=== PATIENT | male | born 1945 | race Caucasian/White ===

== ENCOUNTER → 2017-09-28 07:55 | Outpatient (CLI) | payer OTHER, SELFPAY ==
[2017-09-28 09:41] LABS: Cholesterol 185 mg/dL (50-200); HDL Cholesterol 76 mg/dL (40-60); LDL CHOLESTEROL 101 mg/dL (<100); Triglyceride 56 mg/dL (30-150)
== END ==
PROVIDERS: PCP Family Medicine; Visit Provider Family Medicine
DX: E87.4 Mixed disorder of acid-base balance (principal)
CPT/HCPCS: 36415; 80061; 83721

== ENCOUNTER 2018-04-01 14:16 | Outpatient (CLI) | payer OTHER, SELFPAY ==
--- NOTE | 2018-04-01 13:38 | DI.RAD_ITS ---
SYMPTOMS/DIAGNOSIS: PAIN IN RIGHT FINGER, M79.644, S/P JAMMING 5 WEEKS AGO, PERSISTING PAIN, SUBTLE MEDIAL SUBLUXATION, ? FRACTURE RIGHT MIDDLE FINGER: Three views. No acute fracture or dislocation is seen. The proximal interphalangeal joint shows joint space narrowing and periarticular spurring. The distal interphalangeal joint shows joint space narrowing, subchondral sclerosis and spurring. Subchondral cysts are seen in the joint space. There is no radiopaque foreign body seen in the soft tissues. IMPRESSION: 1. No acute fracture or dislocation. 2. Degenerative changes of the middle finger.
== END 2018-04-01 14:36 ==
PROVIDERS: PCP Family Medicine; Visit Provider Family Medicine
DX: M79.644 Pain in right finger(s) (principal); M19.041 Primary osteoarthritis, right hand; M85.441 Solitary bone cyst, right hand
CPT/HCPCS: 73140

== ENCOUNTER → 2018-06-01 11:08 | Outpatient (BNVA) | payer OTHER, SELFPAY | PROVIDERS: PCP Family Medicine; Referring Provider Family Medicine; Visit Provider Orthopaedic Surgery | DX: M17.11 Unilateral primary osteoarthritis, right knee (principal) | CPT/HCPCS: 99211; 99212 ==

== ENCOUNTER 2018-06-13 17:17 | Emergency (ER) | payer OTHER, SELFPAY ==
[2018-06-13 17:33] VITALS: BP 143/88; PULSE 86; RESP 18; TEMP 37; O2SAT 100
--- NOTE | 2018-06-13 17:37 | W.ED.GENAD ---
Discharge Plan Disposition Patient Disposition: HOME Condition: Good Discharge Details Chief Complaint: AnimalBite Clinical Impression: Cat bite Primary Care Provider: Wolf Keller ED Provider: Geo Victoria Home Meds and New Rx's Prescriptions: New amoxicillin-pot clavulanate [Augmentin] 875-125 mg tablet 1 tab PO BID Qty: 20 RF: 0 No Action atorvastatin 10 MG tablet 0.5 tab PO DAILY RF: 0 flaxseed oil 1,000 MG capsule 1,000 mg PO DAILY RF: 0 aspirin [Aspirin Low-Strength] 81 MG tablet,chewable 81 mg PO DAILY RF: 0 ketoconazole 15 GM cream 1 ea Topical PRN PRNRF: 0 multivitamin 1 EACH capsule 1 ea PO DAILY RF: 0 cholecalciferol (vitamin D3) [Vitamin D3] 1,000 UNIT capsule 1,000 unit PO .3X WEEKLY RF: 0 Glucos Chond Cplx Advanced 1 EACH tablet 1 ea PO DAILY RF: 0 Discharge Instructions Instructions: Animal Bite (ED) Additional Instructions: Please take the antibiotic as directed. If you notice any worsening of your symptoms, or any new symptoms such as v spreading of the redness, worsening pain with movement of your fingers, omiting, diarrhea, fever, chills, shortness of breath, chest pain, numbness, weakness, or fainting , please return immediately to the emergency department for reevaluation. Please follow up with your primary care provider as soon as possible for reassessment and reevaluation. As always, it was a pleasure participating in your medical care today. Referrals: Wolf Keller [Primary Care Provider] - Medical Decision Making This is a 73-year-old male with no significant past medical history who presents for evaluation after a cat bite. He was bitten on his right hand over 8 hours ago, he scrubbed and cleaned the area vigorously after the initial event. Since then he has noted a small amount of swelling. Clinically he shows minimal swelling around the bite area, but no evidence of clinical flexor or extensor tenosynovitis. With no history of diabetes, we will start the patient on Augmentin, give him his first dose here, recommend close follow-up. Tetanus is up-to-date, and the cat's vaccines are up-to-date. I have extensively reviewed the treatment plan and discharge instructions with the patient. I have addressed all patient concerns at this time. The patient was made aware of what symptoms to monitor for that would warrant a return to the emergency department. Discussed the plan with the patient, they demonstrate verbal understanding and agreement with our assessment and plan at this time. HPI General Date/Time Provider Initiated Documentation: 06/13/18 17:26. HPI Narrative: This is a 73-year-old male with a past medical history of high cholesterol, who presents today for evaluation of cat bite to his right hand. He is right-hand dominant. Patient states that 8 hours ago he was bit on his right dominant hand by his cat. A single bite was made on the lateral aspect just proximal to his fourth and fifth finger. He scrubbed the area with significant amount of peroxide and soap and water. Apply triple antibiotic ointment, and then went for bike ride. Roughly an hour ago after the bike ride he noticed a small amount of swelling in the area and came in for further evaluation. He denies any fever, chills, redness, discharge or other complaints. He has no antibiotic allergies. The cat was his, it was an indoor cat, his tetanus was updated with the last 5 years, and the cat has its rabies vaccines patient has no other complaints at this time. Related Data Home Medications Medication Instructions Recorded Confirmed aspirin [Aspirin Low-Strength] 81 mg PO DAILY 09/24/16 06/13/18 atorvastatin 0.5 tab PO DAILY 09/24/16 06/13/18 cholecalciferol (vitamin D3) 1,000 unit PO .3X WEEKLY 09/24/16 06/13/18 [Vitamin D] flaxseed oil 1,000 mg PO DAILY 09/24/16 06/13/18 [id number] 149-hyal ac 1 ea PO DAILY 09/24/16 06/13/18 [Glucosamine-Chondr Complex Tab] ketoconazole 1 ea TOPICAL PRN PRN 09/24/16 06/13/18 multivitamin 1 ea PO DAILY 09/24/16 06/13/18 amoxicillin-pot clavulanate 1 tab PO BID #20 tab 06/13/18 [Augmentin] Previous Rx's Medication Instructions Recorded amoxicillin-pot clavulanate 1 tab PO BID #20 tab 06/13/18 [Augmentin] Allergies Allergy/AdvReac Type Severity Reaction Status Date / Time environmental Allergy Mild Uncoded 06/13/18 17:37 General Stated Complaint: AnimalBite MANUEL: 4 Review of Systems Review of Systems All systems reviewed & are unremarkable except as noted in HPI and below PFSH Social History Smoking/Tobacco Use Status: Never Alcohol Intake: never Drug use: Never Do you feel safe at home: Yes Do you feel safe in your relationship?: Yes Exam Narrative Exam Narrative: 1.Const: Well-nourished, Well-developed, appearing stated age 2.Eyes: PERRL, no conjunctival injection, and symmetrical lids. 3.ENT: Atraumatic external nose and ears. Moist MM. Neck: Symmetric, trachea midline, No thyromegaly. 4.CVS: +S1/S2, No murmurs or gallops. Peripheral pulses 2+ and equal in all extremities. Brisk capillary refill in all extremities. 5.RESP: Unlabored respiratory effort. Clear to auscultation bilaterally. No wheezes rales or rhonchi 6.GI: Soft, Nontender/Nondistended, No hepatosplenomegaly. No guarding or rebound. 7.MSK: Normocephalic/Atraumatic, Extremities w/o deformity or ttp No cyanosis or clubbing, Normal movement of all extremities. Symmetrically palpable radial and ulnar pulses. Right hand: capillary refill less than 2 seconds to all digits. Intact sensation to light touch of the radial, median and ulnar nerves demonstrated by testing in the dorsal web space of the thumb, the distal palmar aspect of the index finger, and the lateral surface of the fifth finger. 2 point discrimination intact to 5mm (up to 6mm can be normal in digits 3-5) of discrimination in the affected digit. Intact motor function of the radial, median and ulnar nerves demonstrated by strength of extension of the isolated distal joint of the index finger, hand transplanter, and spreading of the 2nd through 5th digits. Intact recurrent median nerve as demonstrated by ability to move thumb fully through opposition, abduction and flexion. No snuffbox tenderness. Patient has no pain on passive or active flexion or extension of the second third fourth or fifth digits. No evidence of flexor tenosynovitis or extensor tenosynovitis 8.Skin: Warm, Dry. 2 small puncture lesions on the dorsum of the right hand proximal to the fourth and fifth fingers. Minimal swelling, minimal erythema, no drainage or discharge. No significant pain or tenderness. No other significant abnormalities. 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 Sensation grossly intact, no focal neurologic deficits. 10.Psych: (AAO) x3. Appropriate mood and affect Course Vital Signs Temperature 37 C 06/13/18 17:33 Pulse 86 06/13/18 17:33 Respiratory Rate 18 06/13/18 17:33 Blood Pressure 143/88 H 06/13/18 17:33 Pulse Oximetry 100 06/13/18 17:33 Temperature 37 C 06/13/18 17:33 Temperature Source Temporal Artery Scan 06/13/18 17:33 Pulse 86 06/13/18 17:33 Respiratory Rate 18 06/13/18 17:33 Blood Pressure 143/88 H 06/13/18 17:33 Pulse Oximetry 100 06/13/18 17:33 Oxygen Delivery Method Room Air 06/13/18 17:33 Oxygen Flow Rate 0 06/13/18 17:33 Pain Level 1 06/13/18 17:33
[2018-06-13] MEDS: Amoxicillin 875/Clav. 125 TAB PO (17:43)
--- NOTE | 2018-06-13 17:50 | NUR.NOTE ---
Addendum entered by Jennifer Tay 06/14/18 15:48: 06/14/18 [employer] clerk called stating that the patient property was actually in [place] and to report it to that Health Officer. Raleigh Thomas is the [place] Health officer so will give him a copy of the report tonight when he report for work. Jennifer Tay Original Note: Nursing Note: Animal bite will be reported tomorrow due to the State website is not working at this time. Jennifer Tay.
== END 2018-06-13 17:50 | disposition home or self-care (01) ==
PROVIDERS: Emergency Provider Student in an Organized Health Care Education/Training Program; PCP Family Medicine
DX: S61.451A Open bite of right hand, initial encounter (principal); W55.01XA Bitten by cat, initial encounter
CPT/HCPCS: 99283

== ENCOUNTER 2018-09-20 01:24 | Outpatient (CLI) | payer OTHER, SELFPAY ==
[2018-09-20 09:05] LABS: Hemoglobin A1C 5.6 % (4.5-6.2)
[2018-09-20 09:06] LABS: Calculated LDL 109 mg/dL; Cholesterol 189 mg/dL (50-200); HDL Cholesterol 68 mg/dL (40-60); Triglyceride 63 mg/dL (30-150)
== END 2018-09-20 01:44 ==
PROVIDERS: PCP Family Medicine; Visit Provider Family Medicine
DX: Z00.00 Encounter for general adult medical examination without abnormal findings (principal); Z13.6 Encounter for screening for cardiovascular disorders
CPT/HCPCS: 36415; 80061; 83721; 83036

== ENCOUNTER 2019-09-29 10:47 | Outpatient (CLI) | payer OTHER, SELFPAY ==
--- NOTE | 2019-09-29 10:30 | DI.RAD_ITS ---
EXAM: XR FOOT RT COMPLETE CLINICAL HISTORY: eval R foot pain, forefoot (2nd mostly). TECHNIQUE: 2D digital imaging was performed. COMPARISON: No exams were available for comparison FINDINGS: There are degenerative changes of the 1st MTP joint. There is moderate to severe joint space narrowi ng and mild periarticular spurring. There are no bony erosions or evidence of hallux valgus. Remain ing MTP joints are unremarkable. There are mild degenerative changes at the tarsal metatarsal joints . There is no evidence of stress fracture.. IMPRESSION: Degenerative changes of the 1st MTP joint. DATA REPOSITORY: RADIATION DOSE DELIVERED:
== END 2019-09-29 11:07 ==
PROVIDERS: PCP Family Medicine; Referring Provider Family Medicine; Visit Provider Student in an Organized Health Care Education/Training Program
DX: M19.071 Primary osteoarthritis, right ankle and foot (principal); M79.671 Pain in right foot
CPT/HCPCS: 99203; 99214; 73630

== ENCOUNTER 2020-07-23 06:54 | Day surgery (SDC) | payer OTHER, SELFPAY ==
[2020-07-23 07:06] VITALS: BP 142/84; PULSE 60; RESP 16; TEMP 36.2; O2SAT 97
--- NOTE | 2020-07-23 07:10 | ANES.PREOP_ITS ---
General Info Date of Service Date Performed: 07/23/20 Height: 5 ft 10 in Weight: 73.028 kg Body Mass Index (BMI): 23.1 Surgical Procedure: Operation Date: 07/23/20 08:25 Proposed Procedures Side Surgeon p Cataract Extraction with IOL Implant Matias Prakash MD Meds Allergies and Home Medications Allergies Allergy/AdvReac Type Severity Reaction Status Date / Time environmental Allergy Mild Uncoded 07/23/20 07:05 Home Medication Medication Instructions Recorded aspirin [Aspirin Low-Strength] 81 mg PO DAILY 09/24/16 atorvastatin 0.5 tab PO DAILY 09/24/16 flaxseed oil 1,000 mg PO DAILY 09/24/16 [id number] 149-hyal ac 1 ea PO DAILY 09/24/16 [Glucosamine-Chondr Complex Tab] multivitamin 1 ea PO DAILY 09/24/16 biotin 1,000 mcg chewable tablet 1,000 mcg PO DAILY 09/29/19 omega-3 fatty acids [Fish Oil] 1 cap PO DAILY 07/19/20 Current Visit Medications: Current Medications Generic Name Dose Route Start Last Admin Trade Name Freq PRN Reason Stop Dose Admin Acetaminophen 1,000 mg 07/23/20 06:00 Acetaminophen 500 Mg Tab PO Q4H PRN PRN Miscellaneous Medication 0 ml 07/23/20 06:00 Prednisolone 1%, Moxifloxacin 0.5%, Nepafenac 0.1% 5ml Btl OS DIRECTED [facility] Miscellaneous Medication 0 ml 07/23/20 06:00 Tropicam./Phenyleph. 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 denies Iritis, recurrent Mixed hyperlipidemia Osteoarthritis of carpometacarpal (CMC) joint of right thumb Seborrheic dermatitis Trigger finger, right ring finger Surgical History Surgical History (Updated 07/23/20 @ 07:19 by Yoselin Hernandez) Hx of arthroscopic knee surgery bilateral Hx of cataract surgery Hx of tonsillectomy Tobacco Smoking/Tobacco Use Status: Never Alcohol Alcohol Intake: current Alcohol intake frequency: 0-2 drinks per day Substance Use Substance use: Never Substance use type: does not use Vital Signs and Lab Results Lab Results Blood Type / Crossmatch: No Data to Display Complete Blood Count: No Data to Display Complete Metabolic Panel: No Data to Display Liver Function Panel: No Data to Display Coagulation Panel: No Data to Display Cardiac Panel: No Data to Display Arterial Blood Gas: No Data to Display Venous Blood Gas: No Data to Display Pancreas Panel: No Data to Display Thyroid Panel: No Data to Display Infectious Disease: No Data to Display Blood Cultures: No Data to Display Toxicology Panel: No Data to Display Anesthesia Assessment and Plan Anesthesia History Personal History: No History of Anesthesia Complications Family History: No Family History of Anesthesia Complications Exercise Tolerance Exercise Tolerance: Metabolic Equivalents>4 Pertinent Negatives Pertinent Negatives: No Symptoms of GERD, No Major Cardiovascular Symptoms or Complaints, No Major Pulmonary Symptoms or Complaints and No History of CVA/TIA Cardiac & Pulmonary Exam Cardiac Exam: Normal S1/S2 Heart Sounds Pulmonary Exam: Clear Bilateral Breath Sounds Airway Exam Known Difficult Airway: No Mallampati Class: 2 Mouth Opening: Normal (> 3cm) Thyromental Distance: Greater than 3 cm Neck Range of Motion: Full ROM Neck Circumference: Normal Teeth Condition: Normal Dentition ASA Classification ASA Score: ASA 2 Emergency Case?: No NPO Status NPO Status: NPO Clears >2 hours, Solids >8 hours Anesthesia Plan Resuscitation Status: Full Code Anesthesia Technique: MAC Anesthesia Airway Planned: Natural Airway Monitors Used: Standard Monitors
[2020-07-23] MEDS: Tropicam./Phenyleph. (1/2.5%) 5 ML BTL OS ×3 (07:15→07:30)
[2020-07-23 07:22] VITALS: BMI 23.1
[2020-07-23] MEDS: Tetracaine 0.5% 4 ML BTL OS (08:23)
[2020-07-23] MEDS: Balanced Salt Soln.-PLUS 500 ML BAG (08:24)
[2020-07-23] MEDS: Duovisc Viscoelastic System EACH 1 EACH (08:25)
[2020-07-23] MEDS: Lidocaine 1% Pres-Free 5 ML VIAL ×2 (08:25→08:26)
[2020-07-23] MEDS: Lidocaine 2% Jelly 6 ML SYR (08:28)
[2020-07-23] MEDS: Povidone-Iodine Ophth 30 ML BTL (08:31)
--- NOTE | 2020-07-23 08:44 | W.ANESPOSTOP ---
Postoperative Evaluation Date, Time and Location Date Performed: 07/23/20 Time Performed: 08:45 Patient Location: Day Surgery Unit Vital Signs Most Recent Imported Vital Signs: Most Recent Vital Signs Temp Pulse Resp BP Pulse Ox 36.2 C L 60 16 142/84 H 97 07/23/20 07:06 07/23/20 07:06 07/23/20 07:06 07/23/20 07:06 07/23/20 07:06 Most Recent Manually Entered Vital Signs: Adult Blood Pressure: 139/79 Heart Rate: 61 Respirations: 16 Oxygen Saturation (%): 98 Temperature (C): 36.7 C Pain Score (0-10 Scale): 0 Pain Score Most Recent Pain Score: Most Recent Pain Score Pain Level 0 07/23/20 07:06 Assessment Mental Status: Awake (Alert & Oriented to Patient Baseline) Airway and Respiratory Function: Patent airway with normal (patient baseline) respiratory exam Cardiovascular Function: Hemodynamically Stable Hydration Status: Adequately Hydrated Nausea & Vomiting: No Nausea or Vomiting Pain: Pt. Denies Any Pain Peripheral Nerve Block: Other (Local by Dr. Prakash)
--- NOTE | 2020-07-23 08:44 | W.PM.DSUDISC ---
Discharge Plan Disposition Patient Disposition: HOME Condition: Good Discharge Details Reason For Visit: CATARACT Attending Provider: Matias Prakash Primary Care Provider: Wolf Keller Home Meds and New Rx's Prescriptions: No Action biotin 1,000 mcg tablet,chewable 1,000 mcg PO DAILY RF: 0 atorvastatin 10 MG tablet 0.5 tab PO DAILY RF: 0 flaxseed oil 1,000 MG capsule 1,000 mg PO DAILY RF: 0 aspirin [Aspirin Low-Strength] 81 MG tablet,chewable 81 mg PO DAILY RF: 0 multivitamin 1 EACH capsule 1 ea PO DAILY RF: 0 Glucos Chond Cplx Advanced 1 EACH tablet 1 ea PO DAILY RF: 0 Fish Oil Capsule 1 cap PO DAILY RF: 0 Discharge Instructions Stand Alone Forms: Post-op Topical Cataract, Miladis Lopez (DSU) Discharge Orders Discharge Orders: Discharge Order (Routine); Ordered 07/23/20 Ordered By: Matias Prakash DS: Diagnosis Discharge Diagnosis (1) Nuclear sclerotic cataract of left eye: Status: Resolved (2) Cortical cataract of left eye: Status: Resolved (3) Posterior subcapsular age-related cataract of left eye: Status: Resolved
[2020-07-23 08:45] VITALS: BP 139/79; PULSE 61; RESP 16; TEMPC 36.7; O2SAT 98
--- NOTE | 2020-07-23 08:45 | ROE_ITS ---
Date of service: 07/23/20 Time of Service: 08:45 Operative Note Operative Note DATE OF PROCEDURE: 07/23/20 PRE-OP DIAGNOSIS: Nuclear/cortical/posterior subcapsular cataract, left eye POST-OP DIAGNOSIS: same PROCEDURE: Cataract extraction using phacoemulsification with intraocular lens implant, left eye SURGEON: Matias Prakash ANESTHESIA TYPE: Local By Surgeon and MAC Refer to Anesthesia Record PATHOLOGY: none sent COMPLICATIONS: None Patient was transported to: same day Patient's condition: stable Implants: [employer] / [employer] Tecnis [id number] Indications: Progressive decreased vision due to cataract, left eye Procedure Description: CATARACT SURGERY OPERATIVE REPORT PREOPERATIVE DIAGNOSIS: Nuclear/cortical/posterior subcapsular cataract, left eye Myopia, with desire for postoperative myopic refractive target POSTOPERATIVE DIAGNOSIS: Same OPERATION: Cataract extraction using phacoemulsification with posterior chamber intraocular lens implant, left eye. IOL: IOL Brickmason Supervisor/Model: [employer] / RUMA Tecnis [id number] IOL Power: + 23.0 diopters IOL Serial Number: [id number] Optic Diameter: 6.0mm Haptic/Overall Diameter: 13.0mm PHACO INFO: Pancho Solariaurion Vision System with OZil and Active Fluidics Cumulative Dispersed Energy (CDE): 10.51 seconds SURGEON: Matias Prakash MD, FRED ANESTHESIA: Monitored Anesthesia Care (MAC), with local sub-tenon's anesthetic infiltration COMPLICATIONS: None SPECIMENS: None INDICATIONS FOR PROCEDURE: Patient is a 75-year-old gentleman with history of diminished visual acuity in his left eye secondary to the development of nuclear/cortical/posterior sub capsular cataract. He has previously undergone cataract surgery in the right eye in 2012. He now presents for cataract surgery in the left eye. He has moderate myopia in the left eye and desires to remain myopic, with postop refractive target of -2.0 diopters. PROCEDURE: The correct surgical eye was identified and marked as the left eye and the pupil was dilated in the preoperative area using mydriatics and cycloplegics. The dilated pupil size was 7.0 mm. He elected to proceed without oral sedation. The patient was brought to the operating room where cardiopulmonary monitoring was instituted and surgical time-out was performed, confirming the correct operative eye and IOL power. Topical anesthesia was administered and ophthalmic povidone-iodine 5% was instilled into the conjunctival fornices. Lidocaine gel was applied to the cornea and the french-ocular area was prepped with Betadine 10% solution and draped in the usual sterile fashion for intraocular surgery, including an aperture drape. A Tegaderm transparent film dressing was cut in half and used to cover the lashes and lid margins. Care was taken to sequester the lashes and lid margins under the Tegaderm dressing. A lid speculum was placed between the lids of the operative eye and the [employer] operating microscope was maneuvered into position. Tomás scissors were then used to make a conjunctival buttonhole approximately 6mm posterior to the limbus in the inferonasal quadrant. Blunt dissection was carried out to expose bare sclera, and a blunt-tipped sub-tenon?s anesthesia cannula was introduced and passed posteriorly along the globe where non- preserved plain lidocaine was injected into posterior sub-Tenon?s space. A sideport knife was used to make a paracentesis port superior/superiortemporally. Intraocular phenylephrine/lidocaine was injected into the anterior chamber. The anterior chamber was then filled with viscoelastic. A 2.4mm keratome knife was used to create a half-thickness groove at the limbus and then to construct a three-plane near-clear corneal tunnel extending 2.0mm into clear cornea in the temporal position. . A flap was raised on the anterior capsule and capsulorhexis forceps were used to complete a continuous curvilinear capsulorhexis of 5.5 mm. Balanced salt solution was then used to perform cortical cleaving hydrodissection and nuclear hydrodelineation until the lens could be freely rotated within the capsular bag. The lens nucleus was then disassembled and removed within the capsular bag and iris plane using phacoemulsification. Residual cortical material was removed using the 45-degree angled silicone I/A tip with 0.3mm port. The posterior capsule was carefully polished to remove as much residual lens epithelial cells as safely possible. The capsular bag was then inflated and the anterior chamber deepened with viscoelastic. The lens implant described above was inserted into the capsular bag using the RUMA [place] Injector. A Kuglen hook was used to dial the IOL into position. Residual viscoelastic was then removed first from posterior to the IOL, then from the anterior chamber using the I/A handpiece. The lens implant was noted to center nicely within the capsular bag. The incisions were stromally hydrated, and the anterior chamber was reformed using BSS. Then 0.5cc of moxifloxacin 1.0mg/ml were injected into the capsular bag and anterior chamber. The incisions were checked with a Weck spear and found to be secure. Several drops of ophthalmic povidone-iodine 5% were then applied to the eye followed by two dr ops of Imprimis combination prednisolone/moxifloxacin/nepafenac solution. The drapes were removed and a clear plastic protective eye shield was placed over the eye. The patient was then returned to Same Day Surgery in stable condition.
[2020-07-23 08:48] VITALS: BP 139/79; PULSE 61; RESP 16; TEMP 36.7; O2SAT 98
== END 2020-07-23 09:04 | disposition home or self-care (01) ==
PROVIDERS: PCP Family Medicine; Visit Provider Ophthalmology
PROC: (CPT 66984; principal; 2020-07-23 08:15)
DX: H25.042 Posterior subcapsular polar age-related cataract, left eye (principal); E78.2 Mixed hyperlipidemia
CPT/HCPCS: 66984; V2632

== ENCOUNTER 2020-09-19 02:02 | Outpatient (CLI) | payer OTHER, SELFPAY ==
--- NOTE | 2020-09-19 | DI.NM_ITS ---
Exam(s) NM BONE SCAN WHOLE BODY GRP EXAM: NM BONE SCAN WHOLE BODY GRP CLINICAL HISTORY: PROSTATE CA, C61, ? METS. TECHNIQUE: Injected Dose: 25.2 mCi Tc-99m MDP Delayed Images: 3.5 hours. COMPARISON: CR XR finger LT middle from 04/01/2018 CR XR finger LT middle from 04/01/2018 CR XR FOOT RT COMPLETE from 09/29/2019 CR XR FOOT RT COMPLETE from 09/29/2019 FINDINGS: Whole body images and spot views of the spine, chest and pelvis were performed. There are innumerable abnormal foci of increased labeling seen throughout the bilateral ribs, thoraci c spine, pelvis and both proximal femurs. Several foci are seen in the right proximal humerus. Ther e is a focus abnormal labeling in the posterior neck. There is increased activity in the right kidne y which could indicate an element of obstruction versus a prominent renal pelvis. IMPRESSION: 1. Widespread bony metastatic disease. 2. Question of right hydronephrosis. DATA REPOSITORY:
== END 2020-09-19 02:22 ==
PROVIDERS: PCP Family Medicine; Visit Provider Urology
DX: C61 Malignant neoplasm of prostate (principal); C79.51 Secondary malignant neoplasm of bone
CPT/HCPCS: 78306

== ENCOUNTER 2020-09-28 04:19 | Outpatient (CLI) | payer OTHER, SELFPAY ==
--- NOTE | 2020-09-28 | DI.CT_ITS ---
Exam(s) CT ABDOMEN PELVIS WO/W EXAM: CT ABDOMEN PELVIS WO/W CLINICAL HISTORY: RT HYDRONEPHROSIS,N13.30,PROSTATE CA TECHNIQUE: Imaging Protocol: Axial computed tomography images with coronal and sagittal reformatted images were created and reviewed CONTRAST MATERIAL: Intravenous: Omnipaque 350 Contrast volume:100 mL Oral: No COMPARISON: CR CHEST 2 VIEWS PA,LAT from 10/10/2009 FINDINGS: ABDOMEN: Lung Bases: Reticular nodular interstitial disease is seen in the lung bases. There is a calcified g ranuloma in the right lower lobe. Liver: Normal density. No measurable mass. There is an area of decreased attenuation associated with the ligamentum teres likely reflecting focal fatty infiltration. Portal, Superior Mesenteric, and Splenic Veins: Unremarkable. Gallbladder and Biliary Tract: No radiodense calculus or dilation. Pancreas: Normal density, no abnormal calcifications or inflammatory process. Spleen: Normal. Adrenals: No masses seen. Kidneys: Normal size, contour and axis. There is no evidence of nephrolithiasis. There is delayed en hancement of the right kidney with moderately severe dilatation of the right renal collecting system to the level of the urinary bladder. This is secondary to the enlarged prostate gland. The prostate gland heterogeneously enhances. There is asymmetry in size of the prostate gland which is abnormall y enlarged on the right extending into the base of the urinary bladder on the right causing right ure teral obstruction. Prostate carcinoma is suspected. The urinary bladder mass should also be conside red. There are 2 simple cysts in the right kidney. The largest measures 0.8 cm. No follow-up is re commended. Abdominal Aorta: Abdominal portion non-dilated. Mild atherosclerosis. Bowel: No obstruction or bowel wall thickening. No evidence of appendicitis. Small hiatal hernia. Peritoneal Cavity: No ascites, collection or mesenteric inflammatory response. No free air. Lymph Nodes: There are multiple retroperitoneal and pelvic lymph nodes. There is a 1.7 x 2.1 cm left periaortic lymph node just below the left renal artery. There is a 1.6 x 1.6 cm aortic caval lymph node. There is a 1.7 x 1.7 cm right iliac lymph node. There is a 1 x 1 cm left iliac lymph node. Bones: There is sclerosis seen in the spine and pelvis consistent with metastatic disease. Soft Tissues: There is a fluid attenuation seen in the right inguinal canal. This may represent an u ndescended testes. Please correlate with the physical exam. PELVIS: Bladder: There is diffuse thickening of the wall of the urinary bladder. There is a soft tissue mass seen in the right aspect of the posterior urinary bladder at its base. This likely reflects the pat ient's known prostatic carcinoma. It causes obstruction of the right ureter. Reproductive Organs: See the above discussion. Lymph Nodes: Enlarged retroperitoneal and pelvic lymph nodes. Bones: Diffuse osseous metastatic disease. IMPRESSION: 1. Heterogeneously enhancing prostate gland with an enhancing mass extending into the base of the samm dder on the right and obstructing the right ureter. The findings are most suspicious for prostatic c arcinoma. Urinary bladder carcinoma may also be considered. 2. Osseous metastatic disease and retroperitoneal adenopathy. 3. Findings likely reflecting pulmonary fibrosis. RADIATION DOSE DELIVERED: 1,924.48mGy.cm Total DLP 1,924.48mGy.cm Total DLP DATA REPOSITORY: All CT scans at this facility are submitted to the National Radiology Data Registry (NRDR) Dose Index Registry (DIR) with the [employer] ([employer]). RADIATION OPTIMIZATION: All CT scans at this facility use at least one of these dose optimization te chniques: automated exposure control; mA and/or kV adjustment per patient size (includes targeted exa ms where dose is matched to clinical indication); or iterative reconstruction.
[2020-09-28 08:27] LABS: Anion Gap 10.1 mmol/L (3-11); BUN 27 mg/dL (7-18); CO2 25.9 mmol/L (21.0-32.0); CREATININE 1.7 mg/dL (0.70-1.30); Calcium 9.4 mg/dL (8.5-10.1); Chloride 105 mmol/L (98-107); Estimated GFR 39.28 (mL/min/1.73m2); Glucose 104 mg/dL (74-106); Potassium 3.8 mmol/L (3.5-5.1); Sodium 141 mmol/L (136-145)
[2020-09-28] MEDS: Omnipaque 350 MG/ML 100 ML BTL IJ (09:32)
== END 2020-09-28 04:39 ==
PROVIDERS: PCP Family Medicine; Visit Provider Urology
DX: C61 Malignant neoplasm of prostate (principal); C79.9 Secondary malignant neoplasm of unspecified site; N13.1 Hydronephrosis with ureteral stricture, not elsewhere classified; R59.0 Localized enlarged lymph nodes
CPT/HCPCS: 80048; 74178; J3490

== ENCOUNTER 2020-11-02 03:20 | Outpatient (CLI) | payer OTHER, SELFPAY ==
[2020-11-02 10:28] LABS: Abs Immature Grans 0.03 10^3/uL (0.0-0.06); Absolute Basophil Count 0.05 10^3/uL (0.0-0.2); Absolute Eosinophil Count 0.33 10^3/uL (0.0-0.7); Absolute Lymphocyte Count 1.12 10^3/uL (1.2-3.4); Absolute Monocyte Count 0.61 10^3/uL (0.1-0.8); Absolute Neutrophil Count 3.14 10^3/uL (1.2-6.7); Basophils % 0.9; Eosinophils % 6.3; HCT 41.4 % (40.0-50.0); HGB 13.7 g/dL (13.5-17.5); Immature Grans % 0.6; Lymphocytes % 21.2; MCHC 33.1 % (32.0-36.0); MCV 90.8 fL (80-95); MPV 10.6 fL (8.0-11.0); Monocytes % 11.6; Neutrophils % 59.4; Nucleated RBC 0 %; Platelet Count 213 10^3/uL (130-400); RBC 4.56 10^6/uL (4.36-5.78); RDW 12.9 % (11.8-14.1); RDW-SD 42.9 fL; WBC 5.28 10^3/uL (4.4-10.8)
[2020-11-02 10:42] LABS: ALT 27 U/L (16-63); AST 22 U/L (15-37); Albumin 3.5 g/dL (3.4-5.0); Alkaline Phosphatase 205 U/L (46-116); Anion Gap 6.5 mmol/L (3-11); BUN 23 mg/dL (7-18); Bilirubin, Total 0.4 mg/dL (0.2-1.0); CO2 29.5 mmol/L (21.0-32.0); CREATININE 1.4 mg/dL (0.70-1.30); Calcium 8.8 mg/dL (8.5-10.1); Chloride 105 mmol/L (98-107); Estimated GFR 49.14 (mL/min/1.73m2); Glucose 74 mg/dL (74-106); Potassium 4.3 mmol/L (3.5-5.1); Sodium 141 mmol/L (136-145)
[2020-11-03 15:19] LABS: PSA, Ultrasensitive 612 ng/mL (<= 6.5)
[2020-11-06 15:26] LABS: Testosterone, Total 51 ng/dL (240-950)
== END 2020-11-02 03:21 | disposition home or self-care (01) ==
LOC: LBO 03:20
PROVIDERS: PCP Family Medicine; Visit Provider Internal Medicine
DX: C61 Malignant neoplasm of prostate (principal); C79.51 Secondary malignant neoplasm of bone
CPT/HCPCS: 36415; 80053; 84153; 84403; 85025

== ENCOUNTER 2020-11-20 01:14 | Outpatient (CLI) | payer OTHER, SELFPAY ==
--- NOTE | 2020-11-20 15:25 | DI.CT_ITS ---
Exam(s) CT CHEST WO EXAM: CT CHEST WO CLINICAL HISTORY: METASTATIC PROSTATE CA,C61,C79.51,STAGING EXAM. TECHNIQUE: Multi planar reconstructions were performed. CONTRAST MATERIAL: None COMPARISON: NM NM BONE SCAN WHOLE BODY GRP from 09/19/[address] ABDOMEN PELVIS WO/W from 09/28/2020 FINDINGS: CHEST: LUNGS: There is area of infiltrate in the posterior segment of the right upper lobe. Also mild incre ased markings in superior segment of the right lower lobe. Mild pleural base markings in the posteri or basal segment of the right lower lobe. No pleural effusion. There is relative sparing of the rig ht middle lobe. In the opposite-left lung there is mild pleural based increased markings in the posterior basal segme nt left lower lobe. No pleural effusions. There are no focal findings in the trachea and mainstem b ronchi. MEDIASTINUM: There is no obvious hilar nor mediastinal adenopathy. Visualized thyroid unremarkable.No obvious axillary adenopathy CARDIAC: Heart size is normal. There is no pericardial effusion.Caliber of the thoracic aorta is wit hin normal limits. VISUALIZED UPPER ABDOMEN:Right-sided hydronephrosis, as evident on abdominal CT scan of September 2020. No hydronephrosis on the left side. OSSEOUS: There is diffuse blastic skeletal metastatic disease.No compression fractures. IMPRESSION: 1. Mild infiltrate in the posterior segment of the right upper lobe. Mild increased markings in both lower lobes. No pleural effusions. No obvious intrathoracic adenopathy. 2. Diffuse blastic skeletal metastases noted. 3. Right-sided hydronephrosis incidentally noted. RADIATION DOSE DELIVERED: 507.93mGy.cm Total DLP DATA REPOSITORY: All CT scans at this facility are submitted to the National Radiology Data Registry (NRDR) Dose Index Registry (DIR) with the [employer] ([employer]). RADIATION OPTIMIZATION: All CT scans at this facility use at least one of these dose optimization te chniques: automated exposure control; mA and/or kV adjustment per patient size (includes targeted exa ms where dose is matched to clinical indication); or iterative reconstruction.
== END 2020-11-20 01:34 ==
PROVIDERS: PCP Family Medicine; Visit Provider Internal Medicine
DX: C61 Malignant neoplasm of prostate (principal); C79.51 Secondary malignant neoplasm of bone; R91.8 Other nonspecific abnormal finding of lung field
CPT/HCPCS: 71250

== ENCOUNTER 2020-11-21 11:14 | Outpatient (RCR) | payer MEDICARE, SELFPAY ==
[2020-11-21] MEDS: Normal Saline Flush 10 ML SYR 30 ML IVP (11:29)
[2020-11-21 11:38] LABS: Abs Immature Grans 0.02 10^3/uL (0.0-0.06); Absolute Basophil Count 0.04 10^3/uL (0.0-0.2); Absolute Eosinophil Count 0.36 10^3/uL (0.0-0.7); Absolute Lymphocyte Count 1.31 10^3/uL (1.2-3.4); Absolute Monocyte Count 0.57 10^3/uL (0.1-0.8); Absolute Neutrophil Count 2.74 10^3/uL (1.2-6.7); Basophils % 0.8; Eosinophils % 7.1; HCT 38.3 % (40.0-50.0); HGB 12.8 g/dL (13.5-17.5); Immature Grans % 0.4; MCH 30.3 pg (27.0-33.0); MCHC 33.4 % (32.0-36.0); MCV 90.5 fL (80-95); MPV 11.2 fL (8.0-11.0); Monocytes % 11.3; Neutrophils % 54.4; Nucleated RBC 0 %; Platelet Count 196 10^3/uL (130-400); RBC 4.23 10^6/uL (4.36-5.78); RDW 13.5 % (11.8-14.1); RDW-SD 44.8 fL; WBC 5.04 10^3/uL (4.4-10.8)
[2020-11-21 11:52] LABS: ALT 52 U/L (16-63); AST 28 U/L (15-37); Albumin 3.3 g/dL (3.4-5.0); Alkaline Phosphatase 216 U/L (46-116); Anion Gap 6.6 mmol/L (3-11); BUN 23 mg/dL (7-18); Bilirubin, Total 0.4 mg/dL (0.2-1.0); CO2 27.4 mmol/L (21.0-32.0); CREATININE 1.2 mg/dL (0.70-1.30); Calcium 8.7 mg/dL (8.5-10.1); Chloride 107 mmol/L (98-107); Estimated GFR 58.71 (mL/min/1.73m2); Glucose 94 mg/dL (74-106); Potassium 4.2 mmol/L (3.5-5.1); Sodium 141 mmol/L (136-145); Total Protein 6.5 g/dL (6.4-8.2)
[2020-11-22 12:18] LABS: PSA, Ultrasensitive 363 ng/mL (<= 6.5)
[2020-11-23 16:44] LABS: Testosterone, Total 7.5 ng/dL (240-950)
== END 2020-12-09 23:59 | disposition home or self-care (01) ==
LOC: INF 11:14
PROVIDERS: Internal Medicine; PCP Family Medicine; Visit Provider Internal Medicine Hematology & Oncology
DX: C61 Malignant neoplasm of prostate (principal); C79.51 Secondary malignant neoplasm of bone
CPT/HCPCS: 36415; 80053; 84153; 84403; 85025

== ENCOUNTER 2020-12-11 02:23 | Outpatient (CLI) | payer OTHER, SELFPAY ==
[2020-12-11 08:56] LABS: Abs Immature Grans 0.06 10^3/uL (0.0-0.06); Absolute Eosinophil Count 0.05 10^3/uL (0.0-0.7); Absolute Lymphocyte Count 1.26 10^3/uL (1.2-3.4); Absolute Monocyte Count 0.76 10^3/uL (0.1-0.8); Absolute Neutrophil Count 3.39 10^3/uL (1.2-6.7); Basophils % 1.8; Eosinophils % 0.9; HCT 37.1 % (40.0-50.0); HGB 12.1 g/dL (13.5-17.5); Immature Grans % 1.1; Lymphocytes % 22.4; MCHC 32.6 % (32.0-36.0); MCV 92.1 fL (80-95); MPV 10.3 fL (8.0-11.0); Monocytes % 13.5; Neutrophils % 60.3; Nucleated RBC 0 %; Platelet Count 262 10^3/uL (130-400); RBC 4.03 10^6/uL (4.36-5.78); RDW 14.1 % (11.8-14.1); RDW-SD 47.2 fL; WBC 5.62 10^3/uL (4.4-10.8)
[2020-12-11 10:01] LABS: ALT 27 U/L (16-63); AST 20 U/L (15-37); Albumin 3.3 g/dL (3.4-5.0); Alkaline Phosphatase 177 U/L (46-116); Anion Gap 7.7 mmol/L (3-11); BUN 22 mg/dL (7-18); Bilirubin, Total 0.4 mg/dL (0.2-1.0); CO2 28.3 mmol/L (21.0-32.0); CREATININE 1.4 mg/dL (0.70-1.30); Calcium 8.6 mg/dL (8.5-10.1); Chloride 106 mmol/L (98-107); Estimated GFR 49.14 (mL/min/1.73m2); Glucose 86 mg/dL (74-106); Potassium 4.5 mmol/L (3.5-5.1); Sodium 142 mmol/L (136-145); Total Protein 6.2 g/dL (6.4-8.2)
[2020-12-12 16:08] LABS: PSA, Ultrasensitive 258 ng/mL (<= 6.5)
[2020-12-14 02:54] LABS: Testosterone, Total 7.5 ng/dL (240-950)
== END 2020-12-11 02:24 | disposition home or self-care (01) ==
LOC: LBO 02:23
PROVIDERS: PCP Family Medicine; Visit Provider Internal Medicine
DX: C61 Malignant neoplasm of prostate (principal); C79.51 Secondary malignant neoplasm of bone
CPT/HCPCS: 36415; 80053; 84153; 84403; 85025

== ENCOUNTER 2021-01-01 04:09 | Outpatient (CLI) | payer MEDICARE, SELFPAY ==
[2021-01-01 08:39] LABS: Abs Immature Grans 0.06 10^3/uL (0.0-0.06); Absolute Basophil Count 0.07 10^3/uL (0.0-0.2); Absolute Eosinophil Count 0.11 10^3/uL (0.0-0.7); Absolute Lymphocyte Count 1.16 10^3/uL (1.2-3.4); Absolute Monocyte Count 0.77 10^3/uL (0.1-0.8); Absolute Neutrophil Count 3.19 10^3/uL (1.2-6.7); Basophils % 1.3; Eosinophils % 2.1; HCT 34.6 % (40.0-50.0); HGB 11.4 g/dL (13.5-17.5); Immature Grans % 1.1; Lymphocytes % 21.6; MCH 30.6 pg (27.0-33.0); MCHC 32.9 % (32.0-36.0); MPV 10.4 fL (8.0-11.0); Monocytes % 14.4; Neutrophils % 59.5; Nucleated RBC 0 %; Platelet Count 202 10^3/uL (130-400); RBC 3.72 10^6/uL (4.36-5.78); RDW 15.9 % (11.8-14.1); RDW-SD 53.1 fL; WBC 5.36 10^3/uL (4.4-10.8)
[2021-01-01 08:52] LABS: ALT 27 U/L (16-63); AST 20 U/L (15-37); Albumin 3.3 g/dL (3.4-5.0); Alkaline Phosphatase 138 U/L (46-116); Anion Gap 6.1 mmol/L (3-11); BUN 19 mg/dL (7-18); Bilirubin, Total 0.5 mg/dL (0.2-1.0); CO2 28.9 mmol/L (21.0-32.0); CREATININE 1.2 mg/dL (0.70-1.30); Chloride 105 mmol/L (98-107); Estimated GFR 58.71 (mL/min/1.73m2); Glucose 89 mg/dL (74-106); Potassium 4.2 mmol/L (3.5-5.1); Sodium 140 mmol/L (136-145); Total Protein 6.4 g/dL (6.4-8.2)
[2021-01-02 12:25] LABS: PSA, Ultrasensitive 170 ng/mL (<= 6.5)
[2021-01-03 07:04] LABS: Testosterone, Total <7.0 ng/dL (240-950)
== END 2021-01-01 04:10 | disposition home or self-care (01) ==
LOC: LBO 04:09
PROVIDERS: PCP Family Medicine; Visit Provider Internal Medicine
DX: C61 Malignant neoplasm of prostate (principal); C79.51 Secondary malignant neoplasm of bone
CPT/HCPCS: 36415; 80053; 84153; 84403; 85025

== ENCOUNTER 2021-01-22 02:53 | Outpatient (CLI) | payer MEDICARE, SELFPAY ==
[2021-01-22 09:19] LABS: Abs Immature Grans 0.05 10^3/uL (0.0-0.06); Absolute Basophil Count 0.06 10^3/uL (0.0-0.2); Absolute Eosinophil Count 0.05 10^3/uL (0.0-0.7); Absolute Lymphocyte Count 0.89 10^3/uL (1.2-3.4); Absolute Monocyte Count 0.76 10^3/uL (0.1-0.8); Absolute Neutrophil Count 2.69 10^3/uL (1.2-6.7); Basophils % 1.3; Eosinophils % 1.1; HCT 32.8 % (40.0-50.0); HGB 10.3 g/dL (13.5-17.5); Immature Grans % 1.1; Lymphocytes % 19.8; MCH 30.2 pg (27.0-33.0); MCHC 31.4 % (32.0-36.0); MCV 96.2 fL (80-95); MPV 9.9 fL (8.0-11.0); Monocytes % 16.9; Neutrophils % 59.8; Nucleated RBC 0 %; Platelet Count 238 10^3/uL (130-400); RBC 3.41 10^6/uL (4.36-5.78); RDW 16.6 % (11.8-14.1); RDW-SD 58.1 fL
[2021-01-22 09:32] LABS: ALT 24 U/L (16-63); AST 17 U/L (15-37); Albumin 3.1 g/dL (3.4-5.0); Alkaline Phosphatase 118 U/L (46-116); Anion Gap 3.9 mmol/L (3-11); BUN 23 mg/dL (7-18); Bilirubin, Total 0.3 mg/dL (0.2-1.0); CO2 28.1 mmol/L (21.0-32.0); CREATININE 1.1 mg/dL (0.70-1.30); Calcium 8.6 mg/dL (8.5-10.1); Chloride 106 mmol/L (98-107); Glucose 85 mg/dL (74-106); Potassium 4.2 mmol/L (3.5-5.1); Sodium 138 mmol/L (136-145); Total Protein 6.1 g/dL (6.4-8.2)
[2021-01-23 23:05] LABS: PSA, Ultrasensitive 120 ng/mL (<= 6.5)
[2021-01-25 16:55] LABS: Testosterone, Total <7.0 ng/dL (240-950)
== END 2021-01-22 02:54 | disposition home or self-care (01) ==
PROVIDERS: PCP Family Medicine; Visit Provider Internal Medicine
DX: C61 Malignant neoplasm of prostate (principal); C79.51 Secondary malignant neoplasm of bone
CPT/HCPCS: 36415; 80053; 84153; 84403; 85025

== ENCOUNTER 2021-02-13 04:03 | Outpatient (CLI) | payer MEDICARE, SELFPAY ==
[2021-02-13 07:41] LABS: Abs Immature Grans 0.02 10^3/uL (0.0-0.06); Absolute Basophil Count 0.07 10^3/uL (0.0-0.2); Absolute Eosinophil Count 0.06 10^3/uL (0.0-0.7); Absolute Lymphocyte Count 0.75 10^3/uL (1.2-3.4); Absolute Monocyte Count 0.72 10^3/uL (0.1-0.8); Absolute Neutrophil Count 2.95 10^3/uL (1.2-6.7); Basophils % 1.5; Eosinophils % 1.3; HCT 33.3 % (40.0-50.0); HGB 10.5 g/dL (13.5-17.5); Immature Grans % 0.4; Lymphocytes % 16.4; MCH 30.8 pg (27.0-33.0); MCHC 31.5 % (32.0-36.0); MCV 97.7 fL (80-95); Monocytes % 15.8; Neutrophils % 64.6; Nucleated RBC 0 %; Platelet Count 275 10^3/uL (130-400); RBC 3.41 10^6/uL (4.36-5.78); RDW 16.3 % (11.8-14.1); RDW-SD 57.6 fL; WBC 4.57 10^3/uL (4.4-10.8)
[2021-02-13 07:55] LABS: ALT 21 U/L (16-63); AST 18 U/L (15-37); Albumin 3.2 g/dL (3.4-5.0); Alkaline Phosphatase 110 U/L (46-116); Anion Gap 7.1 mmol/L (3-11); BUN 24 mg/dL (7-18); Bilirubin, Total 0.3 mg/dL (0.2-1.0); CO2 27.9 mmol/L (21.0-32.0); CREATININE 1.1 mg/dL (0.70-1.30); Calcium 8.8 mg/dL (8.5-10.1); Chloride 106 mmol/L (98-107); Glucose 95 mg/dL (74-106); Potassium 4.2 mmol/L (3.5-5.1); Sodium 141 mmol/L (136-145); Total Protein 6.2 g/dL (6.4-8.2)
[2021-02-14 17:08] LABS: PSA, Ultrasensitive 88.6 ng/mL (<= 6.5)
[2021-02-15 15:21] LABS: Testosterone, Total 9.7 ng/dL (240-950)
== END 2021-02-13 04:04 | disposition home or self-care (01) ==
LOC: LBO 04:03
PROVIDERS: PCP Family Medicine; Visit Provider Internal Medicine
DX: C61 Malignant neoplasm of prostate (principal); C79.51 Secondary malignant neoplasm of bone
CPT/HCPCS: 36415; 80053; 84153; 84403; 85025

== ENCOUNTER 2021-03-05 03:59 | Outpatient (CLI) | payer MEDICARE, SELFPAY ==
[2021-03-05 09:33] LABS: Abs Immature Grans 0.02 10^3/uL (0.0-0.06); Absolute Basophil Count 0.05 10^3/uL (0.0-0.2); Absolute Eosinophil Count 0.04 10^3/uL (0.0-0.7); Absolute Lymphocyte Count 0.77 10^3/uL (1.2-3.4); Absolute Monocyte Count 0.69 10^3/uL (0.1-0.8); Eosinophils % 0.8; HCT 32.6 % (40.0-50.0); HGB 10.6 g/dL (13.5-17.5); Immature Grans % 0.4; Lymphocytes % 15.2; MCH 31.9 pg (27.0-33.0); MCHC 32.5 % (32.0-36.0); MCV 98.2 fL (80-95); MPV 10.3 fL (8.0-11.0); Monocytes % 13.6; Nucleated RBC 0 %; Platelet Count 254 10^3/uL (130-400); RBC 3.32 10^6/uL (4.36-5.78); RDW 15.1 % (11.8-14.1); RDW-SD 53.8 fL; WBC 5.07 10^3/uL (4.4-10.8)
[2021-03-05 09:47] LABS: ALT 22 U/L (16-63); AST 19 U/L (15-37); Albumin 3.1 g/dL (3.4-5.0); Alkaline Phosphatase 98 U/L (46-116); Anion Gap 9.8 mmol/L (3-11); BUN 20 mg/dL (7-18); Bilirubin, Total 0.3 mg/dL (0.2-1.0); CO2 25.2 mmol/L (21.0-32.0); CREATININE 1.2 mg/dL (0.70-1.30); Calcium 8.5 mg/dL (8.5-10.1); Chloride 104 mmol/L (98-107); Estimated GFR 58.56 (mL/min/1.73m2); Glucose 92 mg/dL (74-106); Potassium 4.2 mmol/L (3.5-5.1); Sodium 139 mmol/L (136-145); Total Protein 6.2 g/dL (6.4-8.2)
[2021-03-08 11:11] LABS: Testosterone, Total <7.0 ng/dL (240-950)
== END 2021-03-05 04:00 | disposition home or self-care (01) ==
LOC: LBO 04:00
PROVIDERS: PCP Family Medicine; Visit Provider Internal Medicine
DX: C61 Malignant neoplasm of prostate (principal); C79.51 Secondary malignant neoplasm of bone
CPT/HCPCS: 36415; 80053; 84153; 84403; 85025

== ENCOUNTER 2021-03-13 01:11 | Outpatient (CLI) | payer MEDICARE, SELFPAY ==
--- NOTE | 2021-03-13 | DI.CT_ITS ---
Exam(s) CT CHEST/ABD/PEL W EXAM: CT CHEST/ABD/PEL W CLINICAL HISTORY: METASTATIC PROSTATE CA,C61,C79.51,ANDROGEN THERAPY,Z79.818,S/P TREATMENT,. TECHNIQUE: Imaging Protocol: Axial computed tomography images with coronal and sagittal reformatted images were created and reviewed CONTRAST MATERIAL: Intravenous: Omnipaque 350 Contrast volume:100 ml Oral: yes COMPARISON: CR CHEST 2 VIEWS PA,LAT from 10/10/2009 NM NM BONE SCAN WHOLE BODY GRP from 09/19/[address] ABDOMEN PELVIS WO/W from 09/28/[address] CHEST WO from 11/20/2020 FINDINGS: CHEST: Tracheobronchial tree: Patent where visualized. Mediastinum and [place]: No dominant adenopathy or fluid collection. Pulmonary parenchyma: Calcified granuloma right lower lobe. No suspicious nodules or dominant measura ble mass. Mild interval increase in scarring versus infiltrate inferior right upper lobe, just above the major fissure. Mild interstitial disease. Pleura: No effusion or pneumothorax. Lymph nodes: Within normal limits. Aorta: Thoracic portion non-dilated. Minimal atherosclerotic changes. Heart: Normal size. Mild coronary artery calcifications. Bones: Diffuse patchy sclerosis consistent with metastatic disease in the spine, ribs and sternum. Fi ndings appear more prominent when compared with the previous exam.. ABDOMEN: Liver: Normal density. No measurable mass. Gallbladder and biliary tract: No radiodense calculus or dilation. Pancreas: Normal density, no abnormal calcifications or inflammatory process. Spleen: Normal. Kidneys: Normal size, contour and axis. No radiodense stones . No masses seen. Stable right hydroneph rosis. The right ureter is again dilated down to the ureterovesical junction to the level of the inva sive prostate mass. No left hydronephrosis. Small right renal cysts. Adrenal glands: No masses seen. Aorta: Abdominal portion non-dilated. Lymph nodes: Within normal limits. Resolution of previously noted para-aortic adenopathy. Soft tissues: Unremarkable. PELVIS: Bladder: Symmetric distention, . Decreased size invasive prostate mass, now roughly 4.4 x 4.4 by 4.7 cm. Continued evidence of invasion into the right, inferior aspect of the bladder as well as probable in invasion into the seminal vesicles. Bowel: No obstruction or bowel wall thickening. Peritoneal cavity: No ascites, collection or mesenteric inflammatory response. Bones: Diffuse mottled sclerotic pattern involving spine and pelvis consistent with bone metastases, worsening when paired with the previous exam. Degenerative disc changes L5-S1. Inguinal region: Decreased size of ovoid density in the right inguinal canal, apparent undescended t esticle. IMPRESSION: Mild interval increase of questioned infiltrate in the inferior right upper lobe. Significant interval decrease in size of the invasive prostate mass. Right hydronephrosis persists, u nchanged. Resolution of previously noted retro peritoneal adenopathy. Apparent interval worsening of bony metastatic disease. RADIATION DOSE DELIVERED: 1,419.29mGy.cm Total DLP DATA REPOSITORY: All CT scans at this facility are submitted to the National Radiology Data Registry (NRDR) Dose Index Registry (DIR) with the [employer] ([employer]). RADIATION OPTIMIZATION: All CT scans at this facility use at least one of these dose optimization te chniques: automated exposure control; mA and/or kV adjustment per patient size (includes targeted exa ms where dose is matched to clinical indication); or iterative reconstruction.
--- NOTE | 2021-03-13 | DI.NM_ITS ---
Exam(s) [place] BONE SCAN WHOLE BODY GRP EXAM: NH BONE SCAN WHOLE BODY GRP CLINICAL HISTORY: METASTATIC PROSTATE CA TO BONE,C61,C79.51,S/P ANDROGEN THERAPY,Z79.818. TECHNIQUE: Injected Dose: 26 mCi Tc-99m MDP Delayed Images: 2-3 hours. COMPARISON: [facility] BONE SCAN WHOLE BODY GRP from 09/19/[address] CHEST/ABD/PEL W from 03/13/2021 FINDINGS: Bilateral renal excretion is identified. There is prominence of the right renal pelvis. The right k idney is noted to be partially obstructed with a dot dilated renal pelvis on CT. Has been interval i mprovement in the intensity of abnormal labeling in the axial and appendicular skeleton compared to t he previous exam. IMPRESSION: 1. Significant interval improvement in intensity of uptake within the axial and appendicular skeleto n. DATA REPOSITORY:
[2021-03-13] MEDS: Omnipaque 350 MG/ML 100 ML BTL IJ (10:27)
[2021-03-13] MEDS: Breeza Beverage 473 ML BTL PO (10:28)
== END 2021-03-13 01:31 ==
PROVIDERS: PCP Family Medicine; Visit Provider Nurse Practitioner Adult Health
DX: C61 Malignant neoplasm of prostate (principal); C79.51 Secondary malignant neoplasm of bone; Z79.818 Long term (current) use of other agents affecting estrogen receptors and estrogen levels; J98.4 Other disorders of lung; N13.30 Unspecified hydronephrosis; N28.1 Cyst of kidney, acquired
CPT/HCPCS: 74177; 78306; 71260; J3490

== ENCOUNTER 2021-03-19 01:56 | Outpatient (CLI) | payer MEDICARE, SELFPAY ==
[2021-03-19 10:47] LABS: Absolute Basophil Count 0.02 10^3/uL (0.0-0.2); Absolute Eosinophil Count 0.12 10^3/uL (0.0-0.7); Absolute Lymphocyte Count 0.93 10^3/uL (1.2-3.4); Absolute Monocyte Count 0.62 10^3/uL (0.1-0.8); Absolute Neutrophil Count 5.61 10^3/uL (1.2-6.7); Basophils % 0.3; Eosinophils % 1.6; HCT 33.3 % (40.0-50.0); HGB 10.6 g/dL (13.5-17.5); Immature Grans % 1.4; Lymphocytes % 12.6; MCHC 31.8 % (32.0-36.0); MCV 97.4 fL (80-95); MPV 11.3 fL (8.0-11.0); Monocytes % 8.4; Neutrophils % 75.7; Nucleated RBC 0 %; Platelet Count 215 10^3/uL (130-400); RBC 3.42 10^6/uL (4.36-5.78); RDW 14.6 % (11.8-14.1); RDW-SD 51.5 fL
[2021-03-19 11:40] LABS: ALT 19 U/L (16-63); AST 16 U/L (15-37); Albumin 3.1 g/dL (3.4-5.0); Alkaline Phosphatase 116 U/L (46-116); Anion Gap 10.5 mmol/L (3-11); BUN 20 mg/dL (7-18); Bilirubin, Total 0.3 mg/dL (0.2-1.0); CO2 25.5 mmol/L (21.0-32.0); CREATININE 1.3 mg/dL (0.70-1.30); Calcium 8.6 mg/dL (8.5-10.1); Chloride 104 mmol/L (98-107); Estimated GFR 53.39 (mL/min/1.73m2); Glucose 139 mg/dL (74-106); Potassium 4.2 mmol/L (3.5-5.1); Sodium 140 mmol/L (136-145); Total Protein 5.9 g/dL (6.4-8.2)
[2021-03-20 14:31] LABS: PSA, Ultrasensitive 73.9 ng/mL (<= 6.5)
[2021-03-25 18:26] LABS: Testosterone, Total <7.0 ng/dL (240-950)
== END 2021-03-19 01:57 | disposition home or self-care (01) ==
LOC: LBO 01:56
PROVIDERS: PCP Family Medicine; Visit Provider Internal Medicine
DX: C61 Malignant neoplasm of prostate (principal); C79.51 Secondary malignant neoplasm of bone
CPT/HCPCS: 36415; 80053; 84153; 84403; 85025

== ENCOUNTER 2021-04-18 02:37 | Outpatient (CLI) | payer MEDICARE, SELFPAY ==
[2021-04-18 09:23] LABS: Abs Immature Grans 0.02 10^3/uL (0.0-0.06); Absolute Basophil Count 0.03 10^3/uL (0.0-0.2); Absolute Eosinophil Count 0.37 10^3/uL (0.0-0.7); Absolute Lymphocyte Count 0.72 10^3/uL (1.2-3.4); Absolute Monocyte Count 0.53 10^3/uL (0.1-0.8); Basophils % 0.5; Eosinophils % 5.6; HCT 36.9 % (40.0-50.0); HGB 12.1 g/dL (13.5-17.5); Immature Grans % 0.3; MCH 31.9 pg (27.0-33.0); MCHC 32.8 % (32.0-36.0); MCV 97.4 fL (80-95); MPV 10.7 fL (8.0-11.0); Monocytes % 8.1; Neutrophils % 74.5; Nucleated RBC 0 %; Platelet Count 212 10^3/uL (130-400); RBC 3.79 10^6/uL (4.36-5.78); RDW 13.2 % (11.8-14.1); RDW-SD 46.9 fL; WBC 6.57 10^3/uL (4.4-10.8)
[2021-04-18 10:42] LABS: Calcium 8.6 mg/dL (8.5-10.1)
[2021-04-18 10:43] LABS: ALT 20 U/L (16-63); AST 17 U/L (15-37); Albumin 3.2 g/dL (3.4-5.0); Alkaline Phosphatase 181 U/L (46-116); Anion Gap 8.1 mmol/L (3-11); BUN 17 mg/dL (7-18); Bilirubin, Total 0.4 mg/dL (0.2-1.0); CO2 27.9 mmol/L (21.0-32.0); CREATININE 1.1 mg/dL (0.70-1.30); Chloride 105 mmol/L (98-107); Glucose 87 mg/dL (74-106); Sodium 141 mmol/L (136-145); Total Protein 5.8 g/dL (6.4-8.2)
[2021-04-19 18:39] LABS: PSA, Ultrasensitive 52.8 ng/mL (<= 6.5)
[2021-04-21 15:22] LABS: Testosterone, Total <7.0 ng/dL (240-950)
== END 2021-04-18 02:38 | disposition home or self-care (01) ==
LOC: LBO 02:38
PROVIDERS: PCP Family Medicine; Visit Provider Internal Medicine Hematology & Oncology
DX: C61 Malignant neoplasm of prostate (principal); C79.51 Secondary malignant neoplasm of bone
CPT/HCPCS: 36415; 80053; 84153; 84403; 85025

== ENCOUNTER 2021-06-03 05:04 | Outpatient (CLI) | payer MEDICARE, SELFPAY ==
[2021-06-03 15:08] LABS: Abs Immature Grans 0.03 10^3/uL (0.0-0.06); Absolute Basophil Count 0.03 10^3/uL (0.0-0.2); Absolute Eosinophil Count 0.11 10^3/uL (0.0-0.7); Absolute Monocyte Count 0.29 10^3/uL (0.1-0.8); Absolute Neutrophil Count 5.77 10^3/uL (1.2-6.7); Basophils % 0.4; Eosinophils % 1.6; HCT 40.4 % (40.0-50.0); HGB 13.1 g/dL (13.5-17.5); Immature Grans % 0.4; Lymphocytes % 10.1; MCH 30.5 pg (27.0-33.0); MCHC 32.4 % (32.0-36.0); MCV 94.2 fL (80-95); MPV 11.5 fL (8.0-11.0); Monocytes % 4.2; Neutrophils % 83.3; Platelet Count 226 10^3/uL (130-400); RBC 4.29 10^6/uL (4.36-5.78); RDW-SD 44.4 fL; WBC 6.93 10^3/uL (4.4-10.8)
[2021-06-03 16:03] LABS: ALT 227 U/L (16-63); AST 72 U/L (15-37); Albumin 3.3 g/dL (3.4-5.0); Alkaline Phosphatase 169 U/L (46-116); Anion Gap 8.1 mmol/L (3-11); BUN 24 mg/dL (7-18); Bilirubin, Total 0.5 mg/dL (0.2-1.0); CO2 25.9 mmol/L (21.0-32.0); CREATININE 1.2 mg/dL (0.70-1.30); Calcium 8.8 mg/dL (8.5-10.1); Chloride 104 mmol/L (98-107); Estimated GFR 58.56 (mL/min/1.73m2); Glucose 139 mg/dL (74-106); Potassium 4.3 mmol/L (3.5-5.1); Sodium 138 mmol/L (136-145); Total Protein 6.2 g/dL (6.4-8.2)
[2021-06-04 17:42] LABS: PSA, Ultrasensitive 57.4 ng/mL (<= 6.5)
[2021-06-07 12:45] LABS: Testosterone, Total <7.0 ng/dL (240-950)
== END 2021-06-03 05:05 | disposition home or self-care (01) ==
LOC: LBO 05:04
PROVIDERS: PCP Family Medicine; Visit Provider Internal Medicine
DX: C61 Malignant neoplasm of prostate (principal); C79.51 Secondary malignant neoplasm of bone
CPT/HCPCS: 36415; 80053; 84153; 84403; 85025

== ENCOUNTER 2021-06-17 01:35 | Outpatient (CLI) | payer MEDICARE, SELFPAY ==
[2021-06-17 16:51] LABS: ALT 43 U/L (16-63); AST 21 U/L (15-37); Albumin 3.3 g/dL (3.4-5.0); Alkaline Phosphatase 146 U/L (46-116); Anion Gap 7.1 mmol/L (3-11); BUN 22 mg/dL (7-18); Bilirubin, Total 0.3 mg/dL (0.2-1.0); CO2 27.9 mmol/L (21.0-32.0); CREATININE 1.1 mg/dL (0.70-1.30); Calcium 8.8 mg/dL (8.5-10.1); Chloride 106 mmol/L (98-107); Glucose 88 mg/dL (74-106); Potassium 4.4 mmol/L (3.5-5.1); Sodium 141 mmol/L (136-145); Total Protein 6.1 g/dL (6.4-8.2)
== END 2021-06-17 01:36 | disposition home or self-care (01) ==
LOC: LBO 01:35
PROVIDERS: PCP Family Medicine; Visit Provider Internal Medicine
DX: C61 Malignant neoplasm of prostate (principal); C79.51 Secondary malignant neoplasm of bone
CPT/HCPCS: 80053

== ENCOUNTER 2021-06-24 03:21 | Outpatient (CLI) | payer MEDICARE, SELFPAY ==
[2021-06-24 12:52] LABS: Abs Immature Grans 0.01 10^3/uL (0.0-0.06); Absolute Basophil Count 0.03 10^3/uL (0.0-0.2); Absolute Eosinophil Count 0.24 10^3/uL (0.0-0.7); Absolute Lymphocyte Count 0.75 10^3/uL (1.2-3.4); Absolute Monocyte Count 0.44 10^3/uL (0.1-0.8); Basophils % 0.6; Eosinophils % 4.7; HCT 40.8 % (40.0-50.0); HGB 13.4 g/dL (13.5-17.5); Immature Grans % 0.2; Lymphocytes % 14.8; MCH 30.2 pg (27.0-33.0); MCHC 32.8 % (32.0-36.0); MCV 92 fL (80-95); MPV 10.9 fL (8.0-11.0); Monocytes % 8.7; Platelet Count 215 10^3/uL (130-400); RBC 4.43 10^6/uL (4.36-5.78); RDW 12.6 % (11.8-14.1); RDW-SD 43.1 fL; WBC 5.07 10^3/uL (4.4-10.8)
[2021-06-24 13:01] LABS: ALT 35 U/L (16-63); AST 19 U/L (15-37); Albumin 3.2 g/dL (3.4-5.0); Alkaline Phosphatase 142 U/L (46-116); Anion Gap 6.6 mmol/L (3-11); BUN 22 mg/dL (7-18); Bilirubin, Total 0.3 mg/dL (0.2-1.0); CO2 28.4 mmol/L (21.0-32.0); CREATININE 1.3 mg/dL (0.70-1.30); Calcium 8.9 mg/dL (8.5-10.1); Chloride 104 mmol/L (98-107); Estimated GFR 53.39 (mL/min/1.73m2); Glucose 132 mg/dL (74-106); Sodium 139 mmol/L (136-145); Total Protein 6.3 g/dL (6.4-8.2)
[2021-06-28 01:28] LABS: Testosterone, Total <7.0 ng/dL (240-950)
== END 2021-06-24 03:22 | disposition home or self-care (01) ==
LOC: LBO 03:22
PROVIDERS: PCP Family Medicine; Visit Provider Internal Medicine
DX: C61 Malignant neoplasm of prostate (principal); C79.51 Secondary malignant neoplasm of bone
CPT/HCPCS: 36415; 80053; 84153; 84403; 85025

== ENCOUNTER 2021-07-12 01:28 | Outpatient (CLI) | payer MEDICARE, SELFPAY ==
[2021-07-12 10:35] LABS: Abs Immature Grans 0.02 10^3/uL (0.0-0.06); Absolute Basophil Count 0.03 10^3/uL (0.0-0.2); Absolute Eosinophil Count 0.21 10^3/uL (0.0-0.7); Absolute Lymphocyte Count 1.21 10^3/uL (1.2-3.4); Absolute Neutrophil Count 2.85 10^3/uL (1.2-6.7); Basophils % 0.6; Eosinophils % 4.4; HCT 39.9 % (40.0-50.0); HGB 13.7 g/dL (13.5-17.5); Immature Grans % 0.4; Lymphocytes % 25.1; MCH 31.1 pg (27.0-33.0); MCHC 34.3 % (32.0-36.0); MCV 91 fL (80-95); MPV 10.7 fL (8.0-11.0); Monocytes % 10.4; Neutrophils % 59.1; Platelet Count 192 10^3/uL (130-400); RDW-SD 43.3 fL; WBC 4.82 10^3/uL (4.4-10.8)
[2021-07-12 11:42] LABS: ALT 33 U/L (16-63); AST 20 U/L (15-37); Albumin 3.1 g/dL (3.4-5.0); Alkaline Phosphatase 129 U/L (46-116); Anion Gap 7.5 mmol/L (3-11); BUN 21 mg/dL (7-18); Bilirubin, Total 0.4 mg/dL (0.2-1.0); CO2 27.5 mmol/L (21.0-32.0); CREATININE 1.2 mg/dL (0.70-1.30); Calcium 8.9 mg/dL (8.5-10.1); Chloride 104 mmol/L (98-107); Estimated GFR 58.56 (mL/min/1.73m2); Glucose 118 mg/dL (74-106); Potassium 3.8 mmol/L (3.5-5.1); Sodium 139 mmol/L (136-145); Total Protein 5.9 g/dL (6.4-8.2)
[2021-07-15 12:50] LABS: PSA, Ultrasensitive 43.1 ng/mL (<= 6.5)
[2021-07-17 19:20] LABS: Testosterone, Total <7.0 ng/dL (240-950)
== END 2021-07-12 01:29 | disposition home or self-care (01) ==
LOC: LBO 01:28
PROVIDERS: PCP Family Medicine; Visit Provider Internal Medicine
DX: C61 Malignant neoplasm of prostate (principal); C79.51 Secondary malignant neoplasm of bone
CPT/HCPCS: 36415; 80053; 84153; 84403; 85025

== ENCOUNTER 2021-07-23 02:31 | Outpatient (CLI) | payer MEDICARE, SELFPAY ==
[2021-07-23 09:44] LABS: Abs Immature Grans 0.01 10^3/uL (0.0-0.06); Absolute Basophil Count 0.03 10^3/uL (0.0-0.2); Absolute Lymphocyte Count 0.76 10^3/uL (1.2-3.4); Absolute Monocyte Count 0.48 10^3/uL (0.1-0.8); Absolute Neutrophil Count 3.06 10^3/uL (1.2-6.7); Basophils % 0.7; Eosinophils % 4.4; HCT 38.7 % (40.0-50.0); HGB 12.9 g/dL (13.5-17.5); Immature Grans % 0.2; Lymphocytes % 16.7; MCH 30.4 pg (27.0-33.0); MCHC 33.3 % (32.0-36.0); MCV 91 fL (80-95); MPV 10.9 fL (8.0-11.0); Monocytes % 10.6; Neutrophils % 67.4; Platelet Count 197 10^3/uL (130-400); RBC 4.24 10^6/uL (4.36-5.78); RDW 13.1 % (11.8-14.1); RDW-SD 42.9 fL; WBC 4.54 10^3/uL (4.4-10.8)
[2021-07-23 09:58] LABS: ALT 11 U/L (16-63); AST 18 U/L (15-37); Albumin 3.2 g/dL (3.4-5.0); Alkaline Phosphatase 126 U/L (46-116); Anion Gap 7.8 mmol/L (3-11); BUN 20 mg/dL (7-18); Bilirubin, Total 0.5 mg/dL (0.2-1.0); CO2 26.2 mmol/L (21.0-32.0); CREATININE 1.2 mg/dL (0.70-1.30); Calcium 8.7 mg/dL (8.5-10.1); Chloride 105 mmol/L (98-107); Estimated GFR 58.56 (mL/min/1.73m2); Glucose 121 mg/dL (74-106); Potassium 3.7 mmol/L (3.5-5.1); Sodium 139 mmol/L (136-145)
[2021-07-25 10:14] LABS: PSA, Ultrasensitive 42.6 ng/mL (<= 6.5)
[2021-07-26 16:04] LABS: Testosterone, Total <7.0 ng/dL (240-950)
== END 2021-07-23 02:32 | disposition home or self-care (01) ==
LOC: LBO 02:31
PROVIDERS: PCP Family Medicine; Visit Provider Internal Medicine
DX: C61 Malignant neoplasm of prostate (principal); C79.51 Secondary malignant neoplasm of bone
CPT/HCPCS: 36415; 80053; 84153; 84403; 85025